=== PATIENT | female | born 1955 | race Caucasian/White ===

== ENCOUNTER 2019-08-03 10:06 | Outpatient (CLI) | payer SELFPAY ==
--- NOTE | 2019-08-03 10:17 | XR_ITS ---
WS: [id number] LUMBAR SPINE FLEXION AND EXTENSION TECHNIQUE: 3 views of the lumbar spine: Lateral neutral, flexion, and extension views. CLINICAL INFORMATION: LOW BACK PAIN COMPARISON: None. FINDINGS: Normal lumbar alignment on the neutral view. No instability on the flexion and extension views. Moderate facet arthropathy L5-S1. Disc space heigh ts are well preserved. Mild chronic compression involving the superior endplate T12. Cholecystectomy clips. XR/XR lumbar spine f/e only [id number] IMPRESSION: No instability on flexion extension.
== END 2019-08-03 10:07 | disposition home or self-care (01) ==
LOC: RADWPI 10:10
PROVIDERS: Family Provider Family Medicine; PCP Family Medicine; Visit Provider Nurse Practitioner
DX: M54.5 Low back pain (principal)
CPT/HCPCS: 72120